=== PATIENT | female | born 2000 | race Caucasian/White ===

== ENCOUNTER 2018-08-01 23:27 | Emergency (ER) | payer OTHER ==
--- NOTE | 2018-08-01 23:54 | EDM.PDOC ---
ED HPI GENERAL MEDICAL PROBLEM - General Chief Complaint: Abdominal Pain Stated Complaint: right lower abd pain, headache Time Seen by Provider: 08/01/18 23:50 Source of Information: Reports: Patient, Family (Mother), Old Records (No [facility] records available), Other ([facility] EMR) History Limitations: Reports: No Limitations - History of Present Illness INITIAL COMMENTS - FREE TEXT/NARRATIVE: The patient was brought to the emergency room via private automobile by her mother for evaluation of returned intermittent 10/10 right lower quadrant abdominal cramping with symptoms starting at about 11 AM this morning. The patient was evaluated at [facility] in [place] about 3 weeks ago with diagnosed mild placental abruption at that time. She was on strict bed rest until 07/22/18 with return to work on 07/23. She denies any injuries, recent intercourse, vaginal spotting/bleeding, gross hematuria, colic, or other UTI symptoms. Appendix ultrasound on 07/17/18 was apparently inconclusive. No recent history of abdominal pain, heartburn, nausea, diarrhea, melena, or any food intolerance, including fatty foods, etc., although occasional borderline gross hematochezia likely secondary to her hemorrhoids and constipation of . The patient also denies any recent fever, cough, wheezing, dyspnea, etc.. She has not taken any medications for her discomfort. She did also complain of a nonspecific bilateral frontal headache and some dizziness with no visual changes , etc. Note that the patient was spotting at time of previous [facility] evaluation with Rhogam given on 07/17/18. She has had her initial OB visit, including OB panel, etc. Her LMP is uncertain, although she is apparently currently 16 weeks by previous ultrasounds as below. Note the patient has yet to feel movement? Onset: Today Onset Date: 08/01/18 Onset Time: 11:00 Duration: Intermittent Location: Reports: Head (Headache), Abdomen. Denies: Face, Neck, Back, Pelvis, Upper Extremity, Left, Upper Extremity, Right, Lower Extremity, Left, Lower Extremity, Right, Radiates to Quality: Reports: Same as Previous Episode, Other (Cramping) Severity: Severe Improves with: Reports: None Worsens with: Reports: None Context: Reports: Other (As above). Denies: Sick Contact, Trauma Associated Symptoms: Reports: Headaches. 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 Denies: Hard of Hearing, Otitis Media, Retinal Detachment Other HEENT History: Patient wears glasses. Cardiovascular History: Reports: None, Other (See Below). Denies: Afib, Aneurysm, Arrhythmia, Blood Clots/VTE/DVT, CAD, Heart Murmur, High Cholesterol, Hypertension, Syncope Other Cardiovascular History: Patient does not know her cholesterol status. Respiratory History: Denies: Asthma, Bronchitis, Recurrent, Intubation, Previous , PE, Pneumothorax Gastrointestinal History: Reports: None, GERD. Denies: Celiac Disease, Cholelithiasis, Gastritis, Hepatitis, Hiatal Hernia, Inflammatory Bowel Disease , Irritable Bowel Syndrome, Jaundice, Pancreatitis Genitourinary History: Reports: None. 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 SAB at 5 weeks gestation requiring D&C as below. Full term without complications during pregnancies or deliveries other than macrosomia from first . Musculoskeletal History: Reports: None. Denies: Arthritis, Fracture, Gout, Osteoarthritis, RA, SLE Neurological History: Reports: None. Denies: Cerebral Aneurysms, Concussion, Headaches, Chronic, Head Trauma, Migraines, Seizure Psychiatric History: Reports: ADD, ADHD, Antisocial Behaviors, Anxiety, Depression, Other (See Below). Denies: Abuse, Victim of, Addiction, Psych Hospitalization(s), PTSD, Suicide Attempt, Suicidal Ideation Other Psychiatric History: Defiant behavior disorder. Endocrine/Metabolic History: Reports: Obesity/BMI 30+. Denies: Diabetes, Gestational, Diabetes, Type I, Diabetes, Type II, Diabetes Mellitus, Type 3c, Hypothyroidism, IDDM Hematologic History: Reports: None. Denies: Anemia, Blood Transfusion(s), Iron Deficiency Immunologic History: Reports: None. Denies: AIDS, HIV, SLE Oncologic (Cancer) History: Reports: None. Denies: Basal Cell Carcinoma, Cervix , Hodgkin's Lymphoma, Leukemia, Lymphoma, Malignant Melanoma, Non-Hodgkin's Lymphoma, Squamous Cell Carcinoma Dermatologic History: Reports: None. Denies: Eczema, Psoriasis - Infectious Disease History Infectious Disease History: Reports: Chicken Pox, RSV (3 weeks of age). Denies : C-Difficile, Measles, Meningitis, Mononucleosis, MRSA, Mumps, Pertussis ( Whooping Cough), Rheumatic Fever, Rubella, Scarlet Fever, Shingles, TB, VRE - Past Surgical History HEENT Surgical History: Reports: Adenoidectomy, Tonsillectomy, Other (See Below) . Denies: Eye Surgery, Laser Surgery, LASIK, Myringotomy w Tube(s), Naso-Sinus Surgery, Oral Surgery Other HEENT Surgeries/Procedures: Tonsillectomy and adenoidectomy at age 10. [place] teeth extraction 4 at age 12. Cardiovascular Surgical History: Reports: None. Denies: Varicose Respiratory Surgical History: Reports: None. Denies: Thoracentesis GI Surgical History: Reports: None. Denies: Appendectomy, Cholecystectomy, Colonoscopy, EGD, Hernia, Abdominal, Hernia, Inguinal, Hernia Repair/Other Female Surgical History: Reports: D&C, Other (See Below). Denies: Breast Biopsy, Tubal Ligation Other Female Surgeries/Procedures: D&C secondary to blighted ovum on 03/06/18 at 5 weeks gestation as above Endocrine Surgical History: Reports: None. Denies: Thyroid Biopsy Neurological Surgical History: Reports: None. Denies: C-Spine, Discectomy, Laminectomy, Lumbar Spine, Sacral Spine, Spinal Fusion, Thoracic Spine, Vertebroplasty Musculoskeletal Surgical History: Reports: None. Denies: Arthroscopic Procedure , Carpal Tunnel, Ganglion Cyst, Joint Replacement, ORIF, Shoulder Surgery Oncologic Surgical History: Reports: None Dermatological Surgical History: Reports: None - Past Imaging History Past Imaging History: Reports: CAT Scan (CTA of the chest on 03/07/18.), Ultrasound (Last OB ultrasound on 07/17/18 with multiple previous OB ultrasounds. Ultrasound of the right lower quadrant/appendix on 07/17/18. Pelvic ultrasound on 03/27/18 and 03/14/18.) Social & Family History - Family History Oncologic: Reports: Breast, Metastatic, Ovarian, Other (See Below) Other Oncologic Family History: Fatal metastatic breast rather than ovarian cancer as per [facility] records in maternal grandmother at age 72. - Tobacco Use Smoking Status *Q: Current Every Day Smoker Tobacco Use Within Last Twelve Months: Cigarettes Years of Tobacco use: 5 Packs/Tins Daily: 0.3 Packs/Tins Daily Comment: Started smoking at age 13 Used Tobacco, but Quit: No Smoking Cessation Information Provided To Patient: Yes Second Hand Smoke Exposure: Yes Source of Second Hand Smoke Exposure: Mom smokes Second Hand Smoke Education Provided: Yes - Caffeine Use Caffeine Use: Reports: Soda (3 sodas per day). Denies: Coffee, Energy Drinks, Tea - Alcohol Use Alcohol Use History: No Days Per Week of Alcohol Use: 0 Number of Drinks Per Day: 0 Number of Drinks Per Day Comment: No previous DWIs, problems with alcohol abuse , etc. 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 ED EXAM - Physical Exam Exam: See Below Exam Limited By: No Limitations General Appearance: WD/WN, No Apparent Distress, Anxious (Mild) Eye Exam: Bilateral Eye: EOMI, Normal Fundi, Normal Inspection (No nystagmus. Patient wearing glasses.), PERRL Ears: Normal External Exam, Normal Canal, Hearing Grossly Normal, Normal TMs Nose: Normal Inspection, Normal Mucosa, No Blood Throat/Mouth: Normal Inspection, Normal Lips, Normal Teeth, Normal Gums, Normal Oropharynx, Normal Voice, No Airway Compromise. No: Dysphagia, Perioral Cyanosis Head: Atraumatic, Normocephalic. No: Facial Swelling, Facial Tenderness, Sinus Tenderness Neck: Normal Inspection, Supple, Non-Tender, Full Range of Motion. No: Lymphadenopathy (L), Lymphadenopathy (R), Thyromegaly Respiratory/Chest: No Respiratory Distress, Lungs Clear, Normal Breath Sounds, No Accessory Muscle Use, Chest Non-Tender. No: Pleural Rub, Retractions Cardiovascular: Normal Peripheral Pulses, Regular Rate, Rhythm (With resolved tachycardia from time of vitals.), No Edema, No Gallop, No JVD, No Murmur, No Rub. No: Gallop/S3, Gallop/S4, Friction Rub GI/Abdominal Exam: Normal Bowel Sounds, Soft, No Organomegaly, No Distention, No Abnormal Bruit, No Mass, Tender (Mild palpation pain in right lower quadrant) , Other (Obese). No: Guarding, Rigid, Rebound Fundal Height In cm: 15 Rectal Exam: Normal Exam, Normal Rectal Tone, Heme - Stool. No: Black Stool, Bloody Stool, Hemorrhoids, Mass, Tenderness (No Sarabjit space tenderness) (Female) Exam: Normal External Exam, Enlarged Uterus (Appropriate for and gestational age), Uterine Tenderness (Possible right-sided), Vaginal Discharge (Moderate vaginal moniliasis). No: Adnexal Mass (L), Adnexal Mass (R), Adnexal Tenderness, Cervical Dilatation, Cervical Fluid, Cervical Lesions, Cervix Motion Tenderness, Products of Conception, Tissue Present in Cervix/Vagina, Vaginal Bleeding, Vaginal Lesions, Vaginal Tears Heart Tones: Present Heart Tones per Min: 150 Movement: Not Appreciated Back Exam: Normal Inspection, Full Range of Motion. No: CVA Tenderness (L), CVA Tenderness (R), Muscle Spasm Extremities: Normal Inspection, Normal Range of Motion, Non-Tender, No Pedal Edema, Normal Capillary Refill. No: Armando's Sign Neurological: Alert, Oriented, CN II-XII Intact, Normal Cognition, Normal Gait, No Motor/Sensory Deficits Psychiatric: Anxious (Mild). No: Depressed Mood Skin Exam: Warm, Dry, Intact, Normal Color, No Rash, Stud(s) (Tongue ). No: Diaphoretic, Ecchymosis, Jaundice, Pallor, Petechiae, Wound/Incision Lymphatic: No Adenopathy Course - Vital Signs Last Recorded V/S: Last Vital Signs Temp 36.8 C 08/01/18 23:33 Pulse 87 08/02/18 01:05 Resp 20 08/01/18 23:33 BP 127/75 08/02/18 01:05 Pulse Ox 99 08/01/18 23:33 Vital Signs - 24 hr 08/01/18 08/02/18 23:33 01:05 Temperature [ 36.8 C Oral] Pulse, 106 H 87 Peripheral [ Left Pulse Oximetry] Respiratory 20 Rate Blood Pressure 145/76 H 127/75 [Right Upper Arm] O2 Sat by Pulse 99 Oximetry - Orders/Labs/Meds Orders: Active Orders 24 hr Category Date Time Status Obtain Past Medical Record [OM.PC] Routine Oth 08/01/18 23:56 Active Labs: Laboratory Tests 08/01/18 08/01/18 08/02/18 Range/Units 00:15 00:15 00:15 WBC 11.8 H (4.0-10.2) K/uL RBC 4.60 (3.77-5.09) M/uL Hgb 13.3 (11.7-15.5) g/dL Hct 37.3 (34.0-46.0) % MCV 81.1 L (84.0-98.0) fL MCH 28.9 (28.2-33.3) pg MCHC 35.7 (31.7-36.0) g/dL RDW 13.6 (11.2-14.1) % Plt Count 236 (150-350) K/uL Neut % (Auto) 72.7 (45.0-80.0) % Lymph % (Auto) 20.8 (10.0-50.0) % Hughes % (Auto) 5.4 (2.0-14.0) % Eos % (Auto) 0.9 (0.0-5.0) % Baso % (Auto) 0.2 (0.0-2.0) % Neut # (Auto) 8.56 H (1.40-7.00) K/uL Lymph # (Auto) 2.45 (0.50-3.50) K/uL Hughes # (Auto) 0.63 (0.00-1.00) K/uL Eos # (Auto) 0.11 (0.00-0.50) K/uL Baso # (Auto) 0.02 (0.00-0.20) K/uL Sodium (136-145) mmol/L Potassium (3.5-5.1) mmol/L Chloride (98-107) mmol/L Carbon Dioxide (21.0-32.0) mmol/L BUN (7-18) mg/dL Creatinine (0.51-1.17) mg/dL Est Cr Clr Drug Dosing mL/min Estimated GFR (MDRD) mL/min Glucose (74-106) mg/dL Calcium (8.5-10.1) mg/dL Total Bilirubin (0.2-1.0) mg/dL AST (15-37) U/L ALT (12-78) U/L Alkaline Phosphatase (46-116) IU/L Total Protein (6.4-8.2) g/dL Albumin (3.4-5.0) g/dL Amylase (25-115) U/L Lipase 79 (73-393) U/L TSH, Ultra Sensitive 1.020 (0.358-3.740) mIU/mL HCG, Quant [id number] Specimen Type Urincc Urine Color Yellow Urine Appearance Cloudy Urine pH 6.0 (5.0-9.0) Ur Specific [place] 1.020 (1.005-1.030) Urine Protein Negative (NEGATIVE) mg/dL Urine Glucose (UA) Negative (NEGATIVE) mg/dL Urine Ketones Negative (NEGATIVE) mg/dL Urine Occult Blood Trace-intact H (NEGATIVE) Urine Nitrite Negative (NEGATIVE) Urine Bilirubin Negative (NEGATIVE) Urine Urobilinogen 1.0 (0.2-1.0) E.U./dL Ur Leukocyte Esterase Moderate H (NEGATIVE) Urine RBC 0-5 /HPF Urine WBC 40-50 H /HPF Ur Epithelial Cells Many H /LPF Urine Bacteria Many H (NONE TO FEW) /HPF Urine Yeast Few H (NEGATIVE) /HPF Urinalysis Comment See note 02/08/19 Range/Units 00:15 WBC (4.0-10.2) K/uL RBC (3.77-5.09) M/uL Hgb (11.7-15.5) g/dL Hct (34.0-46.0) % MCV (84.0-98.0) fL MCH (28.2-33.3) pg MCHC (31.7-36.0) g/dL RDW (11.2-14.1) % Plt Count (150-350) K/uL Neut % (Auto) (45.0-80.0) % Lymph % (Auto) (10.0-50.0) % Hughes % (Auto) (2.0-14.0) % Eos % (Auto) (0.0-5.0) % Baso % (Auto) (0.0-2.0) % Neut # (Auto) (1.40-7.00) K/uL Lymph # (Auto) (0.50-3.50) K/uL Hughes # (Auto) (0.00-1.00) K/uL Eos # (Auto) (0.00-0.50) K/uL Baso # (Auto) (0.00-0.20) K/uL Sodium 139 (136-145) mmol/L Potassium 3.4 L (3.5-5.1) mmol/L Chloride 102 (98-107) mmol/L Carbon Dioxide 24.7 (21.0-32.0) mmol/L BUN 6 L (7-18) mg/dL Creatinine 0.53 (0.51-1.17) mg/dL Est Cr Clr Drug Dosing 164.65 mL/min Estimated GFR (MDRD) > 60 mL/min Glucose 94 (74-106) mg/dL Calcium 9.3 (8.5-10.1) mg/dL Total Bilirubin 0.2 (0.2-1.0) mg/dL AST 8 L (15-37) U/L ALT 16 (12-78) U/L Alkaline Phosphatase 73 (46-116) IU/L Total Protein 6.9 (6.4-8.2) g/dL Albumin 3.1 L (3.4-5.0) g/dL Amylase 41 (25-115) U/L Lipase (73-393) U/L TSH, Ultra Sensitive (0.358-3.740) mIU/mL HCG, Quant Specimen Type Urine Color Urine Appearance Urine pH (5.0-9.0) Ur Specific Salix (1.005-1.030) Urine Protein (NEGATIVE) mg/dL Urine Glucose (UA) (NEGATIVE) mg/dL Urine Ketones (NEGATIVE) mg/dL Urine Occult Blood (NEGATIVE) Urine Nitrite (NEGATIVE) Urine Bilirubin (NEGATIVE) Urine Urobilinogen (0.2-1.0) E.U./dL Ur Leukocyte Esterase (NEGATIVE) Urine RBC /HPF Urine WBC /HPF Ur Epithelial Cells /LPF Urine Bacteria (NONE TO FEW) /HPF Urine Yeast (NEGATIVE) /HPF Urinalysis Comment Urine specimen set up for culture and sensitivity Microbiology 08/02/18 00:51 Stool / Feces Stool Occult Blood (DECLAN) - Final NEGATIVE OCCULT BLOOD Meds: Medications Discontinued Medications Generic Name Dose Route Start Last Admin Trade Name Freq PRN Reason Stop Dose Admin Nitrofurantoin Macrocrystals 100 mg 08/02/18 00:57 08/02/18 01:00 Macrobid PO 08/02/18 00:58 100 mg ONETIME ONE Administration - Radiology Interpretation Free Text/Narrative:: None Departure - Departure Time of Disposition: 01:22 Disposition: Home, Self-Care 01 Condition: Good Clinical Impression: Abdominal pain, Placental abruption, Intrauterine , Obesity (BMI 30.0- 34.9), Tobacco abuse counseling, Mixed anxiety depressive disorder, Vaginal moniliasis, UTI (urinary tract infection), Hypokalemia, Peptic reflux disease, Hypoalbuminemia - Discharge Information *PRESCRIPTION DRUG MONITORING PROGRAM REVIEWED*: Not Applicable *COPY OF PRESCRIPTION DRUG MONITORING REPORT IN PATIENT ANETA: Not Applicable Prescriptions: Nitrofurantoin Monohyd/M-Cryst [Macrobid 100 mg Capsule] 100 mg PO BID #20 capsule Instructions: Health Risks of Smoking, Urinary Tract Infection, Adult, Easy-to- Read, Abdominal Pain, Adult, [id number], Smoking During , Placental Abruption Referrals: Mario Joseph MD [Primary Care Provider] - Forms: ED Department Discharge, ED Return to Work/School Form Additional Instructions: 1. Call your OB at [facility] later this morning concerning your current symptoms and today's ER visit with recommended follow- up appointment [facility] tomorrow morning including repeat OB ultrasound 2. Tylenol 650 mg by mouth every 4 hours as directed./needed. 3. Work excuse- See Form 4. Modified strict bedrest and pelvic rest until otherwise directed by your OB provider 5. Immediately after this visit verify that your cellular telephone's voicemail has been activated and is empty. Also verify that your home telephone 's answering machine is operating properly and has space to receive messages. Note that it is sometimes necessary for us to be able to contact you at a later date to discuss your medical care. 6. Stop all tobacco use [facility] as directed/per provided information and consider contacting Quit LIne, etc.. 7. Please remember that we are ALWAYS here for you and want to answer any questions you may have. Feel free to call the hospital any time and we call you back [facility]. 8. Urine tests should be repeated in about 10-14 days with possible repeat urine culture,etc. at that time. Today's urine culture is pending with results in about 2-3 days. We will call you, if we need to change your therapy. 9. [place] diet, including encouragement of oral fluids such as sports drinks, cranberry juice, etc. for 24-48 hours as directed. Advance to regular diet as tolerated thereafter. - Problem List & Annotations (1) Placental abruption SNOMED Code(s): 776898682 Code(s): O45.90 - PREMATURE SEPARATION OF PLACENTA, UNSP, UNSP TRIMESTER Status: Acute Priority: High Onset Date: 07/17/18 Annotation/Comment:: Known possible mild placental abruption with close follow-up by her OB later today as per discharge instructions. Vital signs improved and stable at time of discharge with no apparent clinical progression of her abruption. Repeat OB ultrasound advisable later today, however. Qualifiers: Trimester: first trimester Qualified Code(s): O45.91 - Premature separation of placenta, unspecified, first trimester (2) Intrauterine SNOMED Code(s): 09357555 Code(s): Z34.90 - ENCNTR FOR SUPRVSN OF NORMAL , UNSP, UNSP TRIMESTER Status: Chronic Priority: High Annotation/Comment:: As above. heart tones observed today, however some concern that patient has not yet felt any movement? (3) Abdominal pain SNOMED Code(s): 82992854 Code(s): R10.9 - UNSPECIFIED ABDOMINAL PAIN Status: Acute Priority: High Onset Date: 08/01/18 Annotation/Comment:: No direct indication of appendicitis. Mild leukocytosis appropriate for her . Close follow-up by regular OB provider as per discharge instructions. Note history of possible intermittent gross medication from hemorrhoids with negative Hemoccult today. Qualifiers: Abdominal location: right lower quadrant Qualified Code(s): R10.31 - Right lower quadrant pain (4) Hypokalemia SNOMED Code(s): 08056649 Code(s): E87.6 - HYPOKALEMIA Status: Acute Priority: Medium Onset Date : 08/01/18 Annotation/Comment:: Encourage oral fluids including sports drinks as above. Observe for now. (5) Mixed anxiety depressive disorder SNOMED Code(s): 812056104 Code(s): F41.8 - OTHER SPECIFIED ANXIETY DISORDERS Status: Chronic Priority: Medium Annotation/Comment:: Stable by history with no current medical therapy. Note additional history of ADHD. (6) Obesity (BMI 30.0-34.9) SNOMED Code(s): 523267815652525 Code(s): E66.9 - OBESITY, UNSPECIFIED Status: Chronic Priority: Medium Annotation/Comment:: Encourage appropriate weight gain for . (7) Tobacco abuse counseling SNOMED Code(s): 961554397, 703120651, 071623421 Code(s): Z71.6 - TOBACCO ABUSE COUNSELING Status: Chronic Priority: Medium Annotation/Comment:: Tobacco cessation strongly encouraged both for the patient and her mother with information provided (8) UTI (urinary tract infection) SNOMED Code(s): 96913869 Code(s): N39.0 - URINARY TRACT INFECTION, SITE NOT SPECIFIED Status: Acute Priority: High Onset Date: 08/02/18 Annotation/Comment:: Macrobid initiated in the emergency room. Close follow-up by regular provider as per discharge instructions. Qualifiers: Urinary tract infection type: acute cystitis Hematuria presence: without hematuria Qualified Code(s): N30.00 - Acute cystitis without hematuria (9) Vaginal moniliasis SNOMED Code(s): 21691803 Code(s): B37.3 - CANDIDIASIS OF VULVA AND VAGINA Status: Acute Priority: Medium Onset Date: 08/02/18 Annotation/Comment:: Typical of . Observe for now. Relatively nonsymptomatic. (10) Hypoalbuminemia SNOMED Code(s): 460224815 Code(s): E88.09 - OTH DISORDERS OF PLASMA-PROTEIN METABOLISM, NEC Status: Acute Priority: Medium Onset Date: 08/01/18 Annotation/Comment:: Typical of . Observe for now. (11) Peptic reflux disease SNOMED Code(s): 571493654 Code(s): K21.9 - GASTRO-ESOPHAGEAL REFLUX DISEASE WITHOUT ESOPHAGITIS Status: Chronic Priority: Medium Annotation/Comment:: Stable during without medical therapy. Observe for now. - Problem List Review Problem List Initiated/Reviewed/Updated: Yes - My Orders Last 24 Hours: My Active Orders 08/01/18 23:56 Obtain Past Medical Record [OM.PC] Routine - Assessment/Plan Last 24 Hours: My Active Orders 08/01/18 23:56 Obtain Past Medical Record [OM.PC] Routine Assessment:: As above. Plan: As above. Extensive precautions were given to the patient and her mother, who are in agreement with the treatment plan. See Patient Instructions for further treatment and plan.
[2018-08-02 00:36] LABS: CHLORIDE,CL 102 mmol/L (98-107); SODIUM,NA 139 mmol/L (136-145)
[2018-08-02] MEDS ORDERED: Nitrofurantoin Monohydrate/Macrocrystalline 100 MG Cap PO ONE (00:57)
== END 2018-08-02 01:22 | disposition home or self-care (01) ==
LOC: LL.ED 23:27
DX: O23.42 Unspecified infection of urinary tract in pregnancy, second trimester (principal); O45.92 Premature separation of placenta, unspecified, second trimester; O99.612 Diseases of the digestive system complicating pregnancy, second trimester; K21.9 Gastro-esophageal reflux disease without esophagitis; O99.282 Endocrine, nutritional and metabolic diseases complicating pregnancy, second trimester; E87.6 Hypokalemia; E88.09 Other disorders of plasma-protein metabolism, not elsewhere classified; O99.342 Other mental disorders complicating pregnancy, second trimester; F41.8 Other specified anxiety disorders; O23.592 Infection of other part of genital tract in pregnancy, second trimester; B37.3 Candidiasis of vulva and vagina; O99.332 Smoking (tobacco) complicating pregnancy, second trimester; F17.210 Nicotine dependence, cigarettes, uncomplicated; Z3A.16 16 weeks gestation of pregnancy; Z79.899 Other long term (current) drug therapy; Z88.0 Allergy status to penicillin
CPT/HCPCS: 36415; 80053; 81001; 82150; 82272; 83690; 84443; 84702; 85025; 87086; 99284; A9270-GY